=== PATIENT | female | born 1995 | race Two or more races ===

== ENCOUNTER 2024-04-25 08:20 | Inpatient (IN) | payer OTHER ==
[2024-04-25 09:36] LABS: BASO % 0.8 % (0-2.0); EOS % 1.1 % (0-4.5); HEMATOCRIT 31.7 % (32.4-45.2); HEMOGLOBIN 10.1 GM/dL (10.7-15.3); MCH 26.7 pg (25.7-33.7); MCHC 31.9 g/dl (32.0-36.0); MEAN CELL VOLUME 83.8 fl (80-96); MEAN PLT VOLUME 7.5 fl (7.5-11.1); MONO % 4.7 % (3.8-10.2); NEUT % 77.4 % (42.8-82.8); PLATELET COUNT 335 10^3/uL (134-434); RBC 3.79 M/mm3 (3.60-5.2); RDW 18.4 % (11.6-15.6)
[2024-04-25 09:41] LABS: INR 0.96 (0.83-1.09)
[2024-04-25 09:44] LABS: ACTIVATED PTT 27.2 SECONDS (25.2-36.5)
[2024-04-25] MEDS: MISOPROSTOL 100 MCG TABLET PV SCH (10:00)
[2024-04-25 10:10] LABS: CHLORIDE 107 mmol/L (98-107); POTASSIUM 3.8 mmol/L (3.5-5.1); SODIUM 135 mmol/L (136-145)
[2024-04-25 10:13] LABS: ANION GAP 7 mmol/L (4-13); BLOOD UREA NITROGEN 8.7 mg/dL (7-18); CO2 21 mmol/L (21-32); GLUCOSE,RANDOM 92 mg/dL (74-106)
[2024-04-25 10:16] LABS: CREATININE 0.4 mg/dL (0.55-1.3)
[2024-04-25 11:14] VITALS: BMI 28.0
[2024-04-25] MEDS: DEXTROSE 5%-LACTATED RINGERS 1,000 ML IV SCH (11:22)
[2024-04-25] MEDS: SODIUM CHLORIDE 500 ML IV STA (13:03)
[2024-04-25] MEDS ORDERED: FENTANYL/BUPIVACAINE/NS/PF - PCEA - 50 ML DISP.SYRIN EP ONE (15:12)
[2024-04-25] MEDS ORDERED: LIDOCAINE HCL 1% PRESERVATIVE FREE - 30ML VIAL ONE (15:19)
[2024-04-25] MEDS ORDERED: OXYTOCIN 20 UNITS in 0.9% NS 20 UNIT/1,000 ML INFUS.BAG IV ONE (15:19)
[2024-04-25] MEDS: OXYTOCIN 20 UNITS in 0.9% NS 20 UNIT/1,000 ML INFUS.BAG IV SCH (15:38)
[2024-04-25] MEDS ORDERED: BENZOCAINE 28 GM HEMORRHOIDAL OINTMENT TP PRN (16:36)
[2024-04-25] MEDS ORDERED: WITCH HAZEL 50% (TUCKS) 40 PAD/JAR PAD TP PRN (16:36)
[2024-04-25 17:30] LABS: CORD BASE EXCESS -3.9 mmol/L (0-2); CORD HCO3 23.2 mmHg (20-29); CORD PCO2 50.1 mmHg (30-78); CORD pH 7.283 (7.14-7.44)
[2024-04-25 17:32] LABS: CORD BASE EXCESS -5.8 mmol/L (0-2); CORD HCO3 22.1 mmHg (20-29); CORD PCO2 52.8 mmHg (30-78); CORD pH 7.24 (7.14-7.44)
[2024-04-25] MEDS ORDERED: IBUPROFEN 600 MG TABLET (FP) PO ONE (18:12)
[2024-04-25] MEDS: IBUPROFEN 600 MG TABLET (FP) PO PRN (18:13)
[2024-04-25] MEDS: LACTATED RINGERS SOLUTION 1,000 ML/1,000 ML INFUS.BAG IV SCH (18:16)
[2024-04-25] MEDS: ACETAMINOPHEN 325 MG TABLET (FP) PO PRN (20:13)
[2024-04-25] MEDS: FERROUS SO4 325 MG TABLET (FP) PO SCH (20:13)
[2024-04-25] MEDS: DOCUSATE SODIUM 100 MG CAPSULE (FP) PO PRN (20:13)
[2024-04-26 06:12] VITALS: RESP 18
[2024-04-26 14:23] LABS: BASO % 0.2 % (0-2.0); EOS % 0.7 % (0-4.5); HEMATOCRIT 19.5 % (32.4-45.2); LYMPH % 18.2 % (8-40); MCHC 33.5 g/dl (32.0-36.0); MEAN CELL VOLUME 83.8 fl (80-96); MEAN PLT VOLUME 7.6 fl (7.5-11.1); NEUT % 76.9 % (42.8-82.8); PLATELET COUNT 273 10^3/uL (134-434); RBC 2.33 M/mm3 (3.60-5.2); RDW 18.5 % (11.6-15.6); WHITE BLOOD COUNT 10.3 K/mm3 (4.0-10.0)
[2024-04-26 14:34] LABS: HEMOGLOBIN 6.5 GM/dL (10.7-15.3)
[2024-04-26] MEDS: IRON SUCROSE INJECTION 300 MG in SODIUM CHLORIDE 235 ML IVPB ONE (20:58)
[2024-04-27 09:13] VITALS: TEMP 97.7
[2024-04-27 11:24] VITALS: BP 96/59; PULSE 80
== END 2024-04-27 13:30 | disposition home or self-care (01) | DRG 560 ==
LOC: JLDR 08:20 → J3W 19:55
PROVIDERS: ADMIT Obstetrics & Gynecology Maternal & Fetal Medicine; ATTEND Obstetrics & Gynecology Maternal & Fetal Medicine
PROC: 10E0XZZ Delivery of Products of Conception, External Approach (ICD-10-PCS; principal; 2024-04-25)
PROC: 0HQ9XZZ Repair Perineum Skin, External Approach (ICD-10-PCS; 2024-04-25)
DX: O70.0 First degree perineal laceration during delivery (principal); O99.12 Other diseases of the blood and blood-forming organs and certain disorders involving the immune mechanism complicating childbirth; D68.61 Antiphospholipid syndrome; Z3A.39 39 weeks gestation of pregnancy; Z37.0 Single live birth
CPT/HCPCS: 36415; 36600; 59409; 80048; 82803; 85025; 85610; 85730; 86780; 86850; 86900; 86901; 88307-TC; J1756